=== PATIENT | female | born 1975 | race Caucasian/White ===

== ENCOUNTER 2019-07-06 09:07 | Emergency (ER) | payer BC ==
--- NOTE | 2019-07-06 09:37 | EDM.PDOC ---
ED HPI GENERAL MEDICAL PROBLEM - General Chief Complaint: Lower Extremity Injury/Pain Stated Complaint: HURT LEG Time Seen by Provider: 07/06/19 09:20 Source of Information: Reports: Patient History Limitations: Reports: No Limitations - History of Present Illness INITIAL COMMENTS - FREE TEXT/NARRATIVE: Patient presents to ER with complaints of right ankle pain. States fell down about 2 stairs last night around 0. She states she iced it frequently and elevated but has continued to have pain with range of motion and weight bearing. Has been taking ibuprofen every 6 hours. This am when awoke, ankle is still stiff, has fair amount of pain, mild swelling noted to outer ankle. No other injuries elsewhere. 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 - Related Data Allergies Allergy/AdvReac Type Severity Reaction Status Date / Time Penicillins Allergy Cannot Verified 07/06/19 10:20 Remember Home Meds: Home Meds Pantoprazole [ProTONIX] 1 tab PO DAILY 06/17/14 [History] Levothyroxine 75 mcg PO ACBREAKFAST 07/06/19 [History] Past Medical History - Past Health History Medical/Surgical History: Denies Medical/Surgical History Gastrointestinal History: Reports: GERD Endocrine/Metabolic History: Reports: Hypothyroidism - Past Surgical History Endocrine Surgical History: Reports: None Social & Family History - Family History Family Medical History: Noncontributory - Tobacco Use Smoking Status *Q: Never Smoker Review of Systems - Review of Systems Review Of Systems: ROS reveals no pertinent complaints other than HPI. ED EXAM, GENERAL - Physical Exam Exam: See Below Exam Limited By: No Limitations General Appearance: Alert, WD/WN, No Apparent Distress Neck: Normal Inspection, Supple, Non-Tender Respiratory/Chest: No Respiratory Distress, Lungs Clear, Normal Breath Sounds Cardiovascular: Regular Rate, Rhythm GI/Abdominal: Normal Bowel Sounds, Soft, Non-Tender Extremities: Joint Swelling (patient has mild swelling to lateral malleolar region. Very tender with palpation. No obvious bruising. pain with flexion and extension and with rotation.), Leg Pain, Limited Range of Motion Neurological: Alert, Oriented Skin Exam: Warm, Dry Course - Vital Signs Last Recorded V/S: Last Vital Signs Temp 97.9 F 07/06/19 09:11 Pulse 89 07/06/19 09:11 Resp 18 07/06/19 09:11 BP 121/73 07/06/19 09:11 Pulse Ox 97 07/06/19 09:11 - Orders/Labs/Meds Orders: Active Orders 24 hr Category Date Time Status Ankle Min 3V Rt [CR] Stat Exams 07/06/19 09:23 Taken - Re-Assessments/Exams Free Text/Narrative Re-Assessment/Exam: 07/06/19 Xrays negative. air splint applied. Departure - Departure Time of Disposition: 09:35 Disposition: Home, Self-Care 01 Condition: Good Clinical Impression: Right ankle sprain - Discharge Information *PRESCRIPTION DRUG MONITORING PROGRAM REVIEWED*: No *COPY OF PRESCRIPTION DRUG MONITORING REPORT IN PATIENT TANIYA: No Instructions: Ankle Sprain With Phase I Rehab-SportsMed Referrals: PCP,Unknown [Primary Care Provider] - Forms: ED Department Discharge Additional Instructions: 1. Rest 2. Elevate throughout the day 3. Ice every 2-3 years, can add heat tomorrow 4. Ibuprofen 800 mg every 6 hours 5. Weight bear as tolerated 6. Follow up if any persisting concerns. - My Orders Last 24 Hours: My Active Orders 07/06/19 09:23 Ankle Min 3V Rt [CR] Stat - Assessment/Plan Last 24 Hours: My Active Orders 07/06/19 09:23 Ankle Min 3V Rt [CR] Stat
== END 2019-07-06 09:56 | disposition home or self-care (01) ==
LOC: CC.ED 09:07
DX: S93.401A Sprain of unspecified ligament of right ankle, initial encounter (principal); K21.9 Gastro-esophageal reflux disease without esophagitis; E03.9 Hypothyroidism, unspecified; Z79.899 Other long term (current) drug therapy; Z88.0 Allergy status to penicillin; W10.9XXA Fall (on) (from) unspecified stairs and steps, initial encounter
CPT/HCPCS: 29515; 73610-RT; 99283-25